=== PATIENT | male | born 1960 | race Caucasian/White ===

== ENCOUNTER → 2022-09-30 | Emergency (ER) | payer OTHER ==
[~2022-09-30] VITALS: Ht 177.8 cm; Wt 93.0 kg
[~2022-09-30] MED LIST: BENZONATATE200 M1 PO; MUCINEX DM TABL1 BOX PO; OMEPRAZOLE20 M1 PO
== END | disposition home or self-care (01) ==
LOC: ER 06:43
DX: R09.89 Other specified symptoms and signs involving the circulatory and respiratory systems (principal); R05.9 Cough, unspecified